=== PATIENT | female | born 1950 | race Caucasian/White ===

== ENCOUNTER → 2017-04-24 | Outpatient (CLI) | payer MEDICARE, MEDICAID ==
[2017-04-24 12:19] LABS: BASOPHILS % (AUTO) 0.2 % (0.0-2.0); EOSINOPHILS % (AUTO) 2.3 % (1.0-6.0); HEMATOCRIT 34.6 % (36-46); HEMOGLOBIN 11.5 g/dL (12.0-16.0); LYMPHOCYTES # (AUTO) 0.7 K/uL (1.0-4.8); LYMPHOCYTES % (AUTO) 6.4 % (22.0-44.0); MEAN CORPUSCULAR HEMOGLOBIN 27.9 pg (26.0-34.0); MEAN CORPUSCULAR HGB CONC 33.3 G/dL (31.0-37.0); MEAN CORPUSCULAR VOLUME 84 fL (80-100); MONOCYTES # (AUTO) 0.5 K/uL (0.1-1.0); NEUTROPHILS # (AUTO) 9.1 K/uL (1.8-7.7); PLATELET COUNT (AUTO) 379 K/uL (150-450); RED BLOOD CELL COUNT(AUTO) 4.13 MIL/uL (4.00-5.20); RED CELL DISTRIBUTION WIDTH 15.7 % (11.5-14.5); WHITE BLOOD COUNT (AUTO) 10.6 K/uL (4.5-11.0)
[2017-04-24 12:20] LABS: NEUTROPHILS % (AUTO) 86.1 % (40.0-70.0)
[2017-04-24 12:31] LABS: ANION GAP 10 mmol/L (8-16); CARBON DIOXIDE 27 mmol/L (22-29); CHLORIDE 105 mmol/L (98-107); SODIUM SERUM 142 mmol/L (136-145)
[2017-04-24 12:35] LABS: INR 1.1 (0.9-1.1); PROTHROMBIN TIME 11.2 SEC (9.4-11.6)
[2017-04-24 12:42] LABS: ALANINE AMINOTRANSFERASE 20 U/L (12-78); ASPARTATE AMINOTRANSFERASE 13 U/L (15-37); BILIRUBIN,TOTAL 0.3 mg/dL (0.1-1.0); CALCIUM, TOTAL 8.9 mg/dL (8.8-10.5); CREATININE 1.09 mg/dL (0.60-1.30); GLOMERULAR FILTR. RATE CALC 50 mL/min (>60); TOTAL PROTEIN, SERUM 8.2 g/dL (6.4-8.2); UREA NITROGEN, BLOOD 30 mg/dL (7-18)
[2017-04-24 13:12] LABS: PROCALCITONIN (PCT) < 0.05 ng/mL (<0.50)
[2017-04-24 13:20] LABS: ERYTHROCYTE SEDIMENTATION RATE 78 MM/HR (0-20)
== END | disposition home or self-care (01) ==
LOC: RADPV 10:15
PROVIDERS: ATTEND Orthopaedic Surgery
DX: S72.492E Other fracture of lower end of left femur, subsequent encounter for open fracture type I or II with routine healing (principal); M25.862 Other specified joint disorders, left knee; M25.762 Osteophyte, left knee; R79.89 Other specified abnormal findings of blood chemistry; X58.XXXD Exposure to other specified factors, subsequent encounter
CPT/HCPCS: 84145; 85651; 86140